=== PATIENT | male | born 1945 | race African-American/Black ===

== ENCOUNTER 2025-03-19 21:02 | Emergency (ER) | payer MEDICARE, MEDICAID ==
[~2025-03-19] VITALS: Ht 193 cm; Wt 87.0 kg
[2025-03-19 21:08] VITALS: O2SAT 98
[2025-03-19] MEDS ORDERED: ACET-2708 MT (22:28)
[2025-03-19] MEDS: ACETAMINOPHEN 325MG TABLET PO ONE (22:31)
[2025-03-19 23:21] VITALS: BP 128/72; PULSE 90; RESP 16; TEMP 36.7; O2SAT 100
== END 2025-03-19 23:25 | disposition home or self-care (01) ==
LOC: ER 21:24
DX: M25.572 Pain in left ankle and joints of left foot (principal); J44.9 Chronic obstructive pulmonary disease, unspecified; Z88.5 Allergy status to narcotic agent
CPT/HCPCS: 73610; 73630; 99284